=== PATIENT | male | born 1970 | race Caucasian/White ===

== ENCOUNTER 2019-01-09 07:31 | Emergency (ER) | payer MEDICARE, MEDICAID ==
[~2019-01-09] VITALS: Ht 182.9 cm; Wt 90.0 kg
[~2019-01-09 07:31] MED LIST: APIX5TAB3 PO; CHLO118M PO; MAGN500C16 PO; METH10TA4 PO; METH20CP PO; RISP1TAB13 PO; SERT50TA PO; TRAZ-251 PO; VITA-268 PO
[2019-01-09 08:09] LABS: CLARITY,URINE CLEAR (Clear); COLOR,URINE AMBER (Yellow); GLUCOSE, URINE NEGATIVE (Neg); KETONES,URINE TRACE mg/dl (Neg); LEUKOCYTE ESTERASE ,URINE NEGATIVE (Neg); NITRITES, URINE NEGATIVE (Neg); OCCULT BLOOD,URINE NEGATIVE (Neg); PH,URINE 5.5 (4.8-8.0); PROTEIN,URINE 100 mg/dl (Neg)
[2019-01-09 08:10] LABS: UA COLLECTION TYPE NON-SPECIFIED
[2019-01-09] MEDS ORDERED: ibuprofen tablet 400 MG TABLET PO ONE (08:10)
[2019-01-09 08:14] LABS: MUCUS STRANDS MANY /LPF (Neg); SQUAMOUS EPITHELIAL CELL,UR FEW /LPF (FEW)
[2019-01-09 08:15] LABS: RBC,URINE 0-2 /HPF (0-2)
[2019-01-09 08:16] LABS: BACTERIA,URINE 1+ /HPF (Neg)
[2019-01-09 08:18] LABS: FINE GRANULAR CAST 0-3 /LPF (NEGATIVE)
[2019-01-09 08:36] LABS: BASOPHILS % (AUTO) 0.4 % (0-1); EOSINOPHILS # (AUTO) 0.1 X10'3 (0-0.9); EOSINOPHILS % (AUTO) 1.4 % (0-6); HEMATOCRIT 41.6 % (42.0-52.0); LYMPHOCYTES # (AUTO) 1.2 X10'3 (1.1-4.8); LYMPHOCYTES % (AUTO) 19.4 % (21-51); MEAN CORPUSCULAR HEMOGLOBIN 29.3 PG (27.0-31.0); MEAN CORPUSCULAR HGB CONC 33.6 g/dL (33.0-36.5); MEAN CORPUSCULAR VOLUME 87.1 FL (78-98); MEAN PLATELET VOLUME 7.7 FL (7.4-10.4); MONOCYTES # (AUTO) 0.6 X10'3 (0-0.9); MONOCYTES % (AUTO) 8.8 % (2-12); NEUTROPHILS # (AUTO) 4.4 X10'3 (1.8-7.7); PLATELET COUNT 109 X10'3 (140-440); RED BLOOD COUNT 4.78 X10'6 (4.70-6.10); WHITE BLOOD COUNT 6.4 X10'3 (4.5-11.0)
[2019-01-09 08:50] LABS: D-DIMER 4.12 MG/L FEU (0-0.50)
[2019-01-09 08:52] LABS: ALANINE AMINOTRANSFERASE 29 U/L (12-78); ALBUMIN 3.9 G/DL (3.4-5.0); ALBUMIN/GLOBULIN RATIO 0.7 (1.1-1.5); ALKALINE PHOSPHATASE 56 IU/L (46-116); ANION GAP 6 (8-16); ASPARTATE AMINO TRANSFERASE 24 U/L (10-37); BILIRUBIN,TOTAL 0.6 MG/DL (0.1-1.0); BLOOD UREA NITROGEN 22 MG/DL (7-18); BUN/CREATININE RATIO 21.8 (5.4-32.0); CALCIUM 8.6 MG/DL (8.5-10.1); CHLORIDE 101 MMOL/L (99-107); CREATININE 1.01 MG/DL (0.60-1.10); POTASSIUM 3.9 MMOL/L (3.5-5.1); SODIUM 136 MMOL/L (135-145); TOTAL CARBON DIOXIDE 28.6 MMOL/L (24-32); TOTAL PROTEIN 9.7 G/DL (6.4-8.2); eGFR 79 ML/MIN
[2019-01-09 08:53] LABS: GLUCOSE 79 MG/DL (70-104)
[2019-01-09] MEDS ORDERED: iohexol 350MG/ML 100ml bottle IV ONE (09:38)
--- NOTE | 2019-01-09 09:54 | NUR ---
CT paged to take pt to CT as he now has PIV access.
[2019-01-09] MEDS ORDERED: enoxaparin 100mg/ml syringe SUBCUT ONE (10:45)
--- NOTE | 2019-01-09 11:21 | NUR ---
[facility] BLOOD BANK TECHNOLOGIST ALEXEY ZHOU PHONE NUMBER [phone]
[2019-01-09] MEDS ORDERED: APIX2.5T PO (12:50)
[2019-01-09 13:06] VITALS: BP 135/84
[2019-01-09] MEDS ORDERED: apixaban 5mg tablet PO ONE (20:00)
== END 2019-01-09 13:09 | disposition home or self-care (01) ==
LOC: ER 07:31
DX: I26.99 Other pulmonary embolism without acute cor pulmonale (principal); E78.00 Pure hypercholesterolemia, unspecified; Z86.718 Personal history of other venous thrombosis and embolism; Z88.0 Allergy status to penicillin; Z79.899 Other long term (current) drug therapy
CPT/HCPCS: 36415; 71046; 71260; 80053; 81001; 85025; 85379; 85610; 87088; 93005; 93306; 96372; 99284; Q9967; J1650

== ENCOUNTER 2019-10-21 08:33 | Emergency (ER) | payer MEDICARE, MEDICAID ==
[~2019-10-21] VITALS: Ht 182.9 cm; Wt 81.8 kg
[~2019-10-21 08:33] MED LIST changes: +APIX2.5T PO
--- NOTE | 2019-10-21 09:26 | NUR ---
Attempt to obtain urine sample at this time, patient unable to provide, will continue to monitor, coronary care unit nurse at bedside.
[2019-10-21 09:36] LABS: BASOPHILS # (AUTO) 0.1 X10'3 (0-0.2); BASOPHILS % (AUTO) 0.4 % (0-1); EOSINOPHILS % (AUTO) 0 % (0-6); HEMATOCRIT 36.6 % (42.0-52.0); HEMOGLOBIN 12.4 g/dl (14.0-17.9); LYMPHOCYTES # (AUTO) 1.1 X10'3 (1.1-4.8); MEAN CORPUSCULAR HEMOGLOBIN 29.2 PG (27.0-31.0); MEAN CORPUSCULAR HGB CONC 33.9 g/dL (33.0-36.5); MEAN CORPUSCULAR VOLUME 86.2 FL (78-98); MEAN PLATELET VOLUME 7.8 FL (7.4-10.4); MONOCYTES # (AUTO) 0.8 X10'3 (0-0.9); MONOCYTES % (AUTO) 5.2 % (2-12); NEUTROPHILS # (AUTO) 12.4 X10'3 (1.8-7.7); NEUTROPHILS % (AUTO) 86.4 % (42-75); PLATELET COUNT 153 X10'3 (140-440); RED BLOOD COUNT 4.24 X10'6 (4.70-6.10); RED CELL DISTRIBUTION WIDTH 14.6 % (11.5-14.5); WHITE BLOOD COUNT 14.4 X10'3 (4.5-11.0)
[2019-10-21 09:46] LABS: ALANINE AMINOTRANSFERASE 47 U/L (12-78); ALBUMIN 3.1 G/DL (3.4-5.0); ALBUMIN/GLOBULIN RATIO 0.5 (1.1-1.5); ALKALINE PHOSPHATASE 44 IU/L (46-116); ANION GAP 11 (8-16); ASPARTATE AMINO TRANSFERASE 41 U/L (10-37); BILIRUBIN,TOTAL 0.8 MG/DL (0.1-1.0); BLOOD UREA NITROGEN 29 MG/DL (7-18); BUN/CREATININE RATIO 18.5 (5.4-32.0); CALCIUM 8.4 MG/DL (8.5-10.1); CHLORIDE 92 MMOL/L (99-107); CREATININE 1.57 MG/DL (0.60-1.10); GLUCOSE 141 MG/DL (70-104); LIPASE 75 U/L (73-393); POTASSIUM 3.3 MMOL/L (3.5-5.1); SODIUM 128 MMOL/L (135-145); TOTAL CARBON DIOXIDE 24.7 MMOL/L (24-32); TOTAL PROTEIN 9.2 G/DL (6.4-8.2); eGFR 47 ML/MIN
[2019-10-21] MEDS ORDERED: normal saline 1000ml 1,000 ML IV ONE ×2 (10:30→11:30)
--- NOTE | 2019-10-21 11:22 | NUR ---
walked pt to the bathroom with urinal
[2019-10-21] MEDS ORDERED: normal saline 1000ml 1,000 ML IVB ONE (11:25)
[2019-10-21 11:42] LABS: CLARITY,URINE SLIGHTLY CLOUDY (Clear); COLOR,URINE YELLOW (Yellow); GLUCOSE, URINE NEGATIVE (Neg); KETONES,URINE NEGATIVE (Neg); LEUKOCYTE ESTERASE ,URINE SMALL (Neg); NITRITES, URINE POSITIVE (Neg); OCCULT BLOOD,URINE MODERATE (Neg); PROTEIN,URINE 100 mg/dl (Neg); UROBILINOGEN,URINE 0.2 E.U/dL (0.2-1.0)
[2019-10-21 11:45] LABS: UA COLLECTION TYPE URINAL
[2019-10-21 11:53] LABS: WBC,URINE 50-100 /HPF (0-4)
[2019-10-21 11:54] LABS: BACTERIA,URINE 4+ /HPF (Neg); MUCUS STRANDS MODERATE /LPF (Neg); SQUAMOUS EPITHELIAL CELL,UR FEW /LPF (FEW)
[2019-10-21 11:55] LABS: TRANSITIONAL EPI CELLS,URINE FEW /HPF
[2019-10-21] MEDS ORDERED: CefTRIAXone 2gm/D5W 50ml 50 ML IV ONE (12:20)
[2019-10-21] MEDS ORDERED: CEPH-572 PO (12:21)
--- NOTE | 2019-10-21 13:35 | NUR ---
CALL TO CAREGIVER ALEXEY ZHOU [phone] FOR TRANSPORT.
[2019-10-21 14:07] VITALS: BP 100/65
== END 2019-10-21 14:09 | disposition home or self-care (01) ==
LOC: ER 08:34
DX: N39.0 Urinary tract infection, site not specified (principal); R53.1 Weakness; R19.7 Diarrhea, unspecified; R10.84 Generalized abdominal pain; E78.00 Pure hypercholesterolemia, unspecified; F41.9 Anxiety disorder, unspecified; F32.9 Major depressive disorder, single episode, unspecified; Z86.711 Personal history of pulmonary embolism; Z86.718 Personal history of other venous thrombosis and embolism; Z88.0 Allergy status to penicillin; Z79.2 Long term (current) use of antibiotics; Z79.899 Other long term (current) drug therapy
CPT/HCPCS: 36415; 80053; 81001; 83605; 83690; 84145; 85025; 87088; 87186; 96361; 96365; 99285; J0696; J7030; 87077

== ENCOUNTER 2020-01-10 16:52 | Emergency (ER) | payer MEDICARE, MEDICAID ==
[~2020-01-10] VITALS: Ht 175.3 cm; Wt 80.0 kg
[2020-01-10 18:28] LABS: CLARITY,URINE CLEAR (Clear); GLUCOSE, URINE NEGATIVE (Neg); KETONES,URINE TRACE mg/dl (Neg); LEUKOCYTE ESTERASE ,URINE NEGATIVE (Neg); NITRITES, URINE NEGATIVE (Neg); OCCULT BLOOD,URINE NEGATIVE (Neg); PROTEIN,URINE TRACE mg/dl (Neg)
[2020-01-10 18:30] LABS: COLOR,URINE DARK YELLOW (Yellow); UA COLLECTION TYPE URINAL
[2020-01-10 18:35] LABS: BACTERIA,URINE NONE SEEN /HPF (Neg); MUCUS STRANDS MANY /LPF (Neg); RBC,URINE NONE SEEN /HPF (0-2); SQUAMOUS EPITHELIAL CELL,UR FEW /LPF (FEW); WBC,URINE 0-4 /HPF (0-4)
[2020-01-10 19:31] VITALS: BP 149/95
== END 2020-01-10 18:55 | disposition home or self-care (01) ==
LOC: ER 16:52
DX: F50.9 Eating disorder, unspecified (principal); E78.00 Pure hypercholesterolemia, unspecified; F41.9 Anxiety disorder, unspecified; Z87.448 Personal history of other diseases of urinary system; Z20.828 Contact with and (suspected) exposure to other viral communicable diseases; Z88.0 Allergy status to penicillin; Z79.899 Other long term (current) drug therapy
CPT/HCPCS: 36415; 81001; 87635; 99283

== ENCOUNTER 2022-06-13 12:53 | Emergency (ER) | payer MEDICARE, MEDICAID ==
[~2022-06-13] VITALS: Ht 182.9 cm; Wt 80.0 kg
[~2022-06-13 12:53] MED LIST changes: -APIX2.5T PO; -CHLO118M PO; +LAMO100T PO; -MAGN500C16 PO; -METH10TA4 PO; -METH20CP PO; +METH20TA42 PO; -RISP1TAB13 PO; +SERT-434 PO; -SERT50TA PO; -TRAZ-251 PO; +TRAZ-256 PO; -VITA-268 PO
[2022-06-13 12:57] VITALS: BP 109/78
== END 2022-06-13 13:47 | disposition home or self-care (01) ==
LOC: ER 12:53
DX: S01.512A Laceration without foreign body of oral cavity, initial encounter (principal); E78.00 Pure hypercholesterolemia, unspecified; Z88.0 Allergy status to penicillin; X58.XXXA Exposure to other specified factors, initial encounter; Y93.89 Activity, other specified; Y92.89 Other specified places as the place of occurrence of the external cause; Y99.8 Other external cause status
CPT/HCPCS: 99281

== ENCOUNTER 2022-08-07 10:57 | Inpatient (IN) | payer MEDICARE, MEDICAID ==
[~2022-08-07] VITALS: Ht 177.8 cm; Wt 70.6 kg
--- NOTE | 2022-08-07 11:51 | NUR ---
Pt refusing to answer medical questions r/t his PMHX. Pt is jumping from one subject to the next not LN is unable to follow story. Pts L elbow is weeping when asked what happened Pt looked at LN and replied "what the fuck do you think happened? I was bit by a bug!"
[2022-08-07] MEDS ORDERED: CefTRIAXone 2gm/D5W 50ml BAG 50 ML IV ONE (13:45)
[2022-08-07] MEDS ORDERED: bacitracin 15gm ointment TP ONE (13:50)
[2022-08-07] MEDS ORDERED: LIDOcaine 1% 30ml preserv. free vial IJ ONE ×2 (13:50→15:10)
[2022-08-07 14:14] LABS: BASOPHILS % (AUTO) 0.2 % (0-1); EOSINOPHILS % (AUTO) 0.3 % (0-6); HEMATOCRIT 34.8 % (42.0-52.0); HEMOGLOBIN 11.6 g/dl (14.0-17.9); LYMPHOCYTES # (AUTO) 0.9 X10'3 (1.1-4.8); LYMPHOCYTES % (AUTO) 10.4 % (21-51); MEAN CORPUSCULAR HEMOGLOBIN 28.4 PG (27.0-31.0); MEAN CORPUSCULAR HGB CONC 33.3 g/dL (33.0-36.5); MEAN CORPUSCULAR VOLUME 85.3 FL (78-98); MEAN PLATELET VOLUME 6.7 FL (7.4-10.4); MONOCYTES # (AUTO) 0.5 X10'3 (0-0.9); MONOCYTES % (AUTO) 5.9 % (2-12); NEUTROPHILS % (AUTO) 83.2 % (42-75); PLATELET COUNT 148 X10'3 (140-440); RED BLOOD COUNT 4.08 X10'6 (4.70-6.10); RED CELL DISTRIBUTION WIDTH 14.4 % (11.5-14.5); WHITE BLOOD COUNT 8.5 X10'3 (4.5-11.0)
[2022-08-07 14:28] LABS: ALANINE AMINOTRANSFERASE 14 U/L (12-78); ALBUMIN/GLOBULIN RATIO 0.7 (1.1-1.5); ALKALINE PHOSPHATASE 54 IU/L (46-116); ANION GAP 9 (8-16); ASPARTATE AMINO TRANSFERASE 19 U/L (10-37); BILIRUBIN,TOTAL 0.4 MG/DL (0.1-1.0); BLOOD UREA NITROGEN 20 MG/DL (7-18); BUN/CREATININE RATIO 26.7 (10.0-20.0); CALCIUM 8.4 MG/DL (8.5-10.1); CHLORIDE 98 MMOL/L (99-107); CREATININE 0.75 MG/DL (0.60-1.10); GLUCOSE 103 MG/DL (70-104); MAGNESIUM 1.9 MG/DL (1.5-2.4); POTASSIUM 4.2 MMOL/L (3.5-5.1); SODIUM 134 MMOL/L (135-145); TOTAL CARBON DIOXIDE 27.2 MMOL/L (24-32); TOTAL PROTEIN 7.3 G/DL (6.4-8.2); eGFR > 90 ML/MIN
[2022-08-07] MEDS ORDERED: mag hydrox/Alum hydrox/simeth 30ml oral suspension PO PRN (15:50)
[2022-08-07] MEDS ORDERED: potassium Cl 20 mEq SR tablet PO PRN ×2 (15:50)
[2022-08-07] MEDS ORDERED: magnesium hydroxide 30ml (MOM) UD suspension PO PRN (15:50)
[2022-08-07] MEDS ORDERED: HYDROmorphone/PF 0.2 MG/ML SYRINGE IV PRN (15:50)
[2022-08-07] MEDS ORDERED: magnesium 4gm in 100ml NS 100 ML IV PRN (15:50)
[2022-08-07] MEDS ORDERED: metoclopramide 5 mg/ml inj IV PRN (15:50)
[2022-08-07] MEDS ORDERED: acetaminophen 650mg rectal suppository RC PRN (15:50)
[2022-08-07] MEDS ORDERED: ondansetron/PF 4mg/2ml inj IV PRN (15:50)
[2022-08-07] MEDS ORDERED: ondansetron 4mg rapidly disintigrating tab PO PRN (15:50)
[2022-08-07] MEDS ORDERED: potassium Cl 40MEQ/1/2NS 520ml 520 ML IV PRN (15:50)
[2022-08-07] MEDS ORDERED: magnesium 2GM in 50ml NS 50 ML IV PRN (15:50)
[2022-08-07] MEDS ORDERED: acetaminophen 325mg tablet PO PRN ×2 (15:50)
[2022-08-07] MEDS ORDERED: magnesium Cl slow-release 64mg tablet PO PRN (15:50)
[2022-08-07] MEDS ORDERED: HYDROmorphone inj. 0.5 MG/0.5 ML DISP.SYRIN IV PRN (15:50)
[2022-08-07] MEDS ORDERED: HYDROcodone/acetaminophen 10/325mg tab PO PRN (15:50)
[2022-08-07] MEDS ORDERED: bisacodyl 10mg suppository rectal RC PRN (15:50)
[2022-08-07] MEDS ORDERED: HYDROcodone/acetaminophen 5mg/325mg tablet PO PRN (15:50)
[2022-08-07] MEDS: normal saline 1000ml 1,000 ML IV SCH (16:30)
--- NOTE | 2022-08-07 17:32 | NUR ---
Reported called to Ortho. Pt will be transfered once solar site assessment specialist is completed for admit.
[2022-08-07 18:00] VITALS: BP 124/73
[2022-08-07 18:18] LABS: APTT 29 SECONDS (22-32)
--- NOTE | 2022-08-07 18:40 | NUR ---
Patient in room ORTHO 4015. I have received report from Carlotta MONCADA and had the opportunity to ask questions and assume patient care.
--- NOTE | 2022-08-07 18:42 | NUR ---
Problems reprioritized. Patient report given, questions answered & plan of care reviewed with CORAL SERRA.
[2022-08-07] MEDS: K and/or MAG REPLACEMENT MC SCH (20:00)
[2022-08-07] MEDS: docusate sod 100mg capsule PO SCH (20:00)
[2022-08-07] MEDS ORDERED: temazepam 15mg capsule PO PRN (21:00)
[2022-08-07] MEDS ORDERED: traZODone 50mg tablet PO ONE (21:35)
[2022-08-07 22:00] VITALS: BP 118/52
[2022-08-07] MEDS ORDERED: BUSP15TA7 PO (22:43)
[2022-08-08] MEDS: normal saline 1000ml 1,000 ML IV SCH ×4 (01:50→22:51)
[2022-08-08 06:00] VITALS: BP 105/60
--- NOTE | 2022-08-08 06:40 | NUR ---
Problems reprioritized. Patient report given, questions answered & plan of care reviewed with Carlotta MONCADA.
[2022-08-08 06:43] LABS: BASOPHILS % (AUTO) 0.1 % (0-1); EOSINOPHILS % (AUTO) 0.4 % (0-6); HEMATOCRIT 33.5 % (42.0-52.0); HEMOGLOBIN 11.1 g/dl (14.0-17.9); LYMPHOCYTES % (AUTO) 11.5 % (21-51); MEAN CORPUSCULAR HGB CONC 33.2 g/dL (33.0-36.5); MEAN CORPUSCULAR VOLUME 84.3 FL (78-98); MEAN PLATELET VOLUME 6.8 FL (7.4-10.4); MONOCYTES # (AUTO) 0.6 X10'3 (0-0.9); MONOCYTES % (AUTO) 6.6 % (2-12); NEUTROPHILS # (AUTO) 7.4 X10'3 (1.8-7.7); NEUTROPHILS % (AUTO) 81.4 % (42-75); PLATELET COUNT 155 X10'3 (140-440); RED BLOOD COUNT 3.97 X10'6 (4.70-6.10); RED CELL DISTRIBUTION WIDTH 14.1 % (11.5-14.5); WHITE BLOOD COUNT 9.1 X10'3 (4.5-11.0)
--- NOTE | 2022-08-08 06:45 | NUR ---
Patient in room ORTHO 4015B. I have received report from CORAL SERRA and had the opportunity to ask questions and assume patient care.
[2022-08-08 07:06] LABS: ALANINE AMINOTRANSFERASE 18 U/L (12-78); ALBUMIN 2.7 G/DL (3.4-5.0); ALBUMIN/GLOBULIN RATIO 0.6 (1.1-1.5); ALKALINE PHOSPHATASE 51 IU/L (46-116); ANION GAP 6 (8-16); ASPARTATE AMINO TRANSFERASE 16 U/L (10-37); BILIRUBIN,TOTAL 0.3 MG/DL (0.1-1.0); BLOOD UREA NITROGEN 14 MG/DL (7-18); BUN/CREATININE RATIO 17.7 (10.0-20.0); CALCIUM 8.3 MG/DL (8.5-10.1); CHLORIDE 100 MMOL/L (99-107); CREATININE 0.79 MG/DL (0.60-1.10); GLUCOSE 105 MG/DL (70-104); MAGNESIUM 1.6 MG/DL (1.5-2.4); POTASSIUM 3.9 MMOL/L (3.5-5.1); SODIUM 133 MMOL/L (135-145); TOTAL CARBON DIOXIDE 27.3 MMOL/L (24-32); TOTAL PROTEIN 6.9 G/DL (6.4-8.2); eGFR > 90 ML/MIN
[2022-08-08] MEDS: docusate sod 100mg capsule PO SCH ×2 (08:00→20:47)
[2022-08-08] MEDS: enoxaparin 40mg/0.4ml syringe SUBCUT SCH (08:06)
[2022-08-08 10:00] VITALS: BP 103/53
[2022-08-08] MEDS: K and/or MAG REPLACEMENT MC SCH ×2 (12:14→20:00)
[2022-08-08] MEDS: VANCOmycin 1250MG/NS 250ml Bag 250 ML IV SCH ×2 (12:21→22:51)
[2022-08-08] MEDS ORDERED: iohexol 300mg/ml 100ml inj. ONE (12:49)
[2022-08-08] MEDS: CefTRIAXone/D5W-Rocephin 1gm 50 ML IV SCH (14:26)
[2022-08-08 18:00] VITALS: BP 126/69
--- NOTE | 2022-08-08 19:00 | NUR ---
Patient in room ORTHO 4006. I have received report from Carlotta MONCADA and had the opportunity to ask questions and assume patient care.
--- NOTE | 2022-08-08 19:20 | NUR ---
Problems reprioritized. Patient report given, questions answered & plan of care reviewed with CORAL SERRA.
[2022-08-08 22:00] VITALS: BP 108/61
[2022-08-09 06:00] VITALS: BP 120/74
--- NOTE | 2022-08-09 06:30 | NUR ---
Patient in room ORTHO 4006. I have received report from Aleah MONCADA and had the opportunity to ask questions and assume patient care.
--- NOTE | 2022-08-09 06:36 | NUR ---
Problems reprioritized. Patient report given, questions answered & plan of care reviewed with Kassi MERINO.
[2022-08-09 07:16] LABS: BASOPHILS % (AUTO) 0.2 % (0-1); EOSINOPHILS # (AUTO) 0.1 X10'3 (0-0.9); EOSINOPHILS % (AUTO) 0.9 % (0-6); HEMATOCRIT 35.6 % (42.0-52.0); HEMOGLOBIN 11.8 g/dl (14.0-17.9); LYMPHOCYTES % (AUTO) 14.2 % (21-51); MEAN CORPUSCULAR HEMOGLOBIN 28.3 PG (27.0-31.0); MEAN CORPUSCULAR HGB CONC 33.2 g/dL (33.0-36.5); MEAN CORPUSCULAR VOLUME 85.1 FL (78-98); MEAN PLATELET VOLUME 7.1 FL (7.4-10.4); MONOCYTES # (AUTO) 0.6 X10'3 (0-0.9); MONOCYTES % (AUTO) 8.6 % (2-12); NEUTROPHILS # (AUTO) 5.1 X10'3 (1.8-7.7); NEUTROPHILS % (AUTO) 76.1 % (42-75); PLATELET COUNT 161 X10'3 (140-440); RED BLOOD COUNT 4.18 X10'6 (4.70-6.10); RED CELL DISTRIBUTION WIDTH 14.1 % (11.5-14.5); WHITE BLOOD COUNT 6.8 X10'3 (4.5-11.0)
[2022-08-09 07:30] LABS: ALANINE AMINOTRANSFERASE 11 U/L (12-78); ALBUMIN 2.6 G/DL (3.4-5.0); ALBUMIN/GLOBULIN RATIO 0.6 (1.1-1.5); ALKALINE PHOSPHATASE 47 IU/L (46-116); ANION GAP 8 (8-16); ASPARTATE AMINO TRANSFERASE 16 U/L (10-37); BILIRUBIN,TOTAL 0.2 MG/DL (0.1-1.0); BLOOD UREA NITROGEN 11 MG/DL (7-18); BUN/CREATININE RATIO 16.2 (10.0-20.0); CALCIUM 8.3 MG/DL (8.5-10.1); CHLORIDE 99 MMOL/L (99-107); CREATININE 0.68 MG/DL (0.60-1.10); GLUCOSE 91 MG/DL (70-104); MAGNESIUM 1.6 MG/DL (1.5-2.4); SODIUM 132 MMOL/L (135-145); TOTAL CARBON DIOXIDE 24.8 MMOL/L (24-32); TOTAL PROTEIN 7.2 G/DL (6.4-8.2); eGFR > 90 ML/MIN
[2022-08-09 07:31] LABS: C-REACTIVE PROTEIN 8.53 MG/DL (0.0-0.5)
[2022-08-09] MEDS: K and/or MAG REPLACEMENT MC SCH (08:00)
[2022-08-09] MEDS: docusate sod 100mg capsule PO SCH (08:00)
[2022-08-09] MEDS: enoxaparin 40mg/0.4ml syringe SUBCUT SCH (08:06)
--- NOTE | 2022-08-09 08:15 | NUR ---
Patient refuses colace this morning
[2022-08-09] MEDS: CefTRIAXone/D5W-Rocephin 1gm 50 ML IV SCH (09:47)
[2022-08-09] MEDS ORDERED: sertraline 50mg tablet PO SCH (11:06)
[2022-08-09] MEDS: VANCOmycin 1250MG/NS 250ml Bag 250 ML IV SCH (11:06)
--- NOTE | 2022-08-09 11:49 | NUR ---
PRESSURE ULCER EDUCATION: DEFINITION: A pressure ulcer is an area of skin that breaks down when you stay in one position too long. The constant pressure against the skin reduces the blood flow to that area and the affected tissue dies. CAUSES: "Being bedridden or in a wheelchair "Fragile skin "Having a chronic condition, such as diabetes or vascular disease "Inability to move certain parts of your body without assistance "Older age "Incontinence of urine or stool SYMPTOMS: "A reddened area that DOES NOT turn white when pressed on - this can be the beginning of a pressure ulcer "A blister, deep sore or a crater - these can be advanced pressure ulcers FIRST AID: "Relieve the pressure on this area "Keep the area clean and dry "Call your primary doctor if you see any of the above symptoms "DO NOT massage the area "DO NOT use a donut shaped or ring shaped pillow- these actually interfere with the blood flow and cause complications PREVENTION: "Check for pressure ulcers everyday "Change position at least every two hours to relieve pressure "Use items that help relieve pressure- pillows, sheepskin, foam padding, and powders. "Keep skin clean and dry "Eat healthy well balanced meals "Exercise daily IF YOU SEE ANY OF THESE SYMPTOMS WHILE IN THE HOSPITAL - TELL YOUR NURSE IMMEDIATELY. IF YOU SEE ANY OF THESE SYMPTOMS WHILE AT HOME OR HAVE ANY QUESTIONS OR CONCERNS ABOUT PRESSURE ULCERS - CALL YOUR PRIMARY DOCTOR IMMEDIATELY. Addendum: 08/09/22 at 1149 by Jana Wagoner RN Amended: Links added.
[2022-08-09] MEDS ORDERED: SULF1TAB49 PO (11:53)
--- NOTE | 2022-08-09 14:00 | NUR ---
Patient discharged today and all discharge papers were reviewed. All questions were answered. IV removed by RN. all patient belongings were gathered and patient dressed himself. Patient was wheeled downstairs and into the private vehicle of his caregiver
--- NOTE | 2022-08-09 14:00 | NUR ---
I have reviewed and agree with interventions, assessments, and documentation by Kassi Wild LVN.
[2022-08-09] MEDS ORDERED: busPIRone 15mg tablet PO SCH (20:00)
[2022-08-09] MEDS ORDERED: apixaban 5mg tablet PO SCH (20:00)
[2022-08-09] MEDS ORDERED: traZODone 50mg tablet PO SCH (21:00)
[2022-08-09] MEDS ORDERED: VANCOMYCIN LEVEL IV ONE (22:30)
[2022-08-10] MEDS ORDERED: lamoTRIgine 100mg tablet PO SCH (08:00)
== END 2022-08-09 14:14 | disposition home health service (06) | DRG 558 ==
LOC: ER 10:57 → ED HOLD 15:53 → ORTHO 4S 17:54
PROVIDERS: ADMIT Family Medicine; ATTEND Family Medicine
PROC: 0H9EXZZ Drainage of Left Lower Arm Skin, External Approach (ICD-10-PCS; principal; 2022-08-07)
PROC: BP2U1ZZ Computerized Tomography (CT Scan) of Left Upper Extremity using Low Osmolar Contrast (ICD-10-PCS; 2022-08-07)
DX: M70.22 Olecranon bursitis, left elbow (principal); I27.82 Chronic pulmonary embolism; L03.116 Cellulitis of left lower limb; K21.9 Gastro-esophageal reflux disease without esophagitis; I48.91 Unspecified atrial fibrillation; F32.A Depression, unspecified; W57.XXXA Bitten or stung by nonvenomous insect and other nonvenomous arthropods, initial encounter; Z60.2 Problems related to living alone; F41.9 Anxiety disorder, unspecified; I25.10 Atherosclerotic heart disease of native coronary artery without angina pectoris; E78.00 Pure hypercholesterolemia, unspecified; Z79.01 Long term (current) use of anticoagulants; Z82.49 Family history of ischemic heart disease and other diseases of the circulatory system; Z88.0 Allergy status to penicillin; Z86.718 Personal history of other venous thrombosis and embolism; Z79.899 Other long term (current) drug therapy; Z79.82 Long term (current) use of aspirin; Y92.89 Other specified places as the place of occurrence of the external cause
CPT/HCPCS: 36415; 71045; 73201; 80053; 83605; 83735; 84145; 85025; 85610; 85730; 86140; 87040; 87070; 87081; 99285; A6223; A6266; A6446; A6449; G0378; J0696; J1650; J3370; J3490; J7030; Q9967

== ENCOUNTER 2022-10-30 14:37 | Emergency (ER) | payer MEDICARE, MEDICAID ==
[~2022-10-30] VITALS: Ht 175.3 cm; Wt 73.6 kg
[~2022-10-30 14:37] MED LIST changes: +BUSP15TA7 PO; -METH20TA42 PO
[2022-10-30] MEDS ORDERED: CEPH-585 PO (18:13)
[2022-10-30] MEDS ORDERED: SULF1TAB49 PO (18:13)
[2022-10-30 18:31] VITALS: BP 117/80; PULSE 74; RESP 16; TEMP 98.2; O2SAT 98
== END 2022-10-30 18:34 | disposition home or self-care (01) ==
LOC: ER 14:38
DX: L03.116 Cellulitis of left lower limb (principal); E78.00 Pure hypercholesterolemia, unspecified; F31.9 Bipolar disorder, unspecified; Z88.0 Allergy status to penicillin; Z79.899 Other long term (current) drug therapy
CPT/HCPCS: 99283

== ENCOUNTER 2022-11-17 09:54 | Emergency (ER) | payer MEDICARE, MEDICAID ==
[~2022-11-17] VITALS: Ht 182.9 cm; Wt 63.0 kg
[~2022-11-17 09:54] MED LIST changes: +CEPH-585 PO
[2022-11-17 10:42] VITALS: BP 98/59; PULSE 81; RESP 20; TEMP 98.4; O2SAT 100
[2022-11-17] MEDS ORDERED: ACET10DR2 EACH EAR (12:22)
== END 2022-11-17 12:40 | disposition home or self-care (01) ==
LOC: ER 09:55
DX: H92.01 Otalgia, right ear (principal); E78.00 Pure hypercholesterolemia, unspecified; Z88.0 Allergy status to penicillin; Z79.899 Other long term (current) drug therapy
CPT/HCPCS: 99283

== ENCOUNTER 2023-01-01 11:36 | Inpatient (IN) | payer MEDICARE, MEDICAID ==
[~2023-01-01] VITALS: Ht 188 cm; Wt 73.3 kg
[~2023-01-01 11:36] MED LIST changes: +ACET10DR2 EACH EAR
[2023-01-01 12:01] LABS: BASOPHILS % (AUTO) 0.5 % (0-1); EOSINOPHILS % (AUTO) 0.3 % (0-6); HEMATOCRIT 40.6 % (42.0-52.0); HEMOGLOBIN 13.5 g/dl (14.0-17.9); LYMPHOCYTES # (AUTO) 1.2 X10'3 (1.1-4.8); LYMPHOCYTES % (AUTO) 25.9 % (21-51); MEAN CORPUSCULAR HEMOGLOBIN 28.9 PG (27.0-31.0); MEAN CORPUSCULAR HGB CONC 33.2 g/dL (33.0-36.5); MEAN CORPUSCULAR VOLUME 87.1 FL (78-98); MEAN PLATELET VOLUME 6.8 FL (7.4-10.4); MONOCYTES # (AUTO) 0.5 X10'3 (0-0.9); NEUTROPHILS # (AUTO) 2.8 X10'3 (1.8-7.7); NEUTROPHILS % (AUTO) 62.3 % (42-75); PLATELET COUNT 145 X10'3 (140-440); RED BLOOD COUNT 4.66 X10'6 (4.70-6.10); RED CELL DISTRIBUTION WIDTH 15.2 % (11.5-14.5); WHITE BLOOD COUNT 4.5 X10'3 (4.5-11.0)
[2023-01-01 12:15] LABS: ALANINE AMINOTRANSFERASE 37 U/L (12-78); ALBUMIN 3.7 G/DL (3.4-5.0); ALBUMIN/GLOBULIN RATIO 0.8 (1.1-1.5); ALKALINE PHOSPHATASE 75 IU/L (46-116); ANION GAP 5 (8-16); ASPARTATE AMINO TRANSFERASE 29 U/L (10-37); BILIRUBIN,TOTAL 0.3 MG/DL (0.1-1.0); BLOOD UREA NITROGEN 21 MG/DL (7-18); BUN/CREATININE RATIO 24.7 (10.0-20.0); CALCIUM 8.8 MG/DL (8.5-10.1); CHLORIDE 98 MMOL/L (99-107); CREATININE 0.85 MG/DL (0.60-1.10); GLUCOSE 111 MG/DL (70-104); POTASSIUM 3.8 MMOL/L (3.5-5.1); SODIUM 134 MMOL/L (135-145); TOTAL CARBON DIOXIDE 31.1 MMOL/L (24-32); TOTAL PROTEIN 8.6 G/DL (6.4-8.2); eCRCL 105 ML/MIN; eGFR > 90 ML/MIN
[2023-01-01 12:23] LABS: PRO BRAIN NATRIURETIC PEPTIDE 112 PG/ML (0-125)
[2023-01-01] MEDS ORDERED: normal saline 1000ML IV soln IVB ONE (13:20)
[2023-01-01 13:48] LABS: D-DIMER < 0.19 MG/L FEU (0-0.50)
[2023-01-01] MEDS ORDERED: ondansetron/PF 4mg/2ml inj IV PRN (16:40)
[2023-01-01] MEDS ORDERED: mag hydrox/Alum hydrox/simeth 30ml oral suspension PO PRN (16:40)
[2023-01-01] MEDS ORDERED: HYDROcodone/acetaminophen 10/325mg tab PO PRN (16:40)
[2023-01-01] MEDS ORDERED: HYDROcodone/acetaminophen 5mg/325mg tablet PO PRN (16:40)
[2023-01-01] MEDS ORDERED: acetaminophen 325mg tablet PO PRN ×2 (16:40)
[2023-01-01] MEDS ORDERED: magnesium hydroxide 30ml (MOM) UD suspension PO PRN (16:40)
[2023-01-01] MEDS ORDERED: morphine 2 MG/ML inj. syringe IV PRN ×2 (16:40)
[2023-01-01] MEDS: normal saline 1000ml 1,000 ML IV SCH ×2 (17:10→18:08)
[2023-01-01] MEDS ORDERED: APIX2.5T PO (18:15)
[2023-01-01] MEDS ORDERED: TIZA-189 PO (18:15)
[2023-01-01] MEDS ORDERED: tizanidine 4mg tablet PO PRN (18:30)
[2023-01-01] MEDS: apixaban 2.5mg tablet PO SCH (20:44)
[2023-01-01] MEDS: busPIRone 15mg tablet PO SCH (20:45)
[2023-01-01] MEDS: docusate sod 100mg capsule PO SCH (20:45)
[2023-01-01] MEDS: traZODone 50mg tablet PO SCH (20:47)
[2023-01-01 20:50] LABS: BILIRUBIN,URINE NEGATIVE (Neg); CLARITY,URINE CLEAR (Clear); COLOR,URINE YELLOW (Yellow); GLUCOSE, URINE NEGATIVE (Neg); KETONES,URINE NEGATIVE (Neg); LEUKOCYTE ESTERASE ,URINE NEGATIVE (Neg); NITRITES, URINE NEGATIVE (Neg); OCCULT BLOOD,URINE NEGATIVE (Neg); PH,URINE 6.5 (4.8-8.0); PROTEIN,URINE NEGATIVE (Neg); UROBILINOGEN,URINE 0.2 E.U/dL (0.2-1.0)
[2023-01-01 21:02] LABS: UA COLLECTION TYPE VOIDED
[2023-01-02] MEDS: normal saline 1000ml 1,000 ML IV SCH ×2 (02:30→18:07)
[2023-01-02] MEDS: docusate sod 100mg capsule PO SCH ×2 (08:00→21:10)
[2023-01-02] MEDS: apixaban 2.5mg tablet PO SCH ×2 (09:36→20:00)
[2023-01-02] MEDS: sertraline 50mg tablet PO SCH (09:37)
[2023-01-02] MEDS: busPIRone 15mg tablet PO SCH ×2 (09:38→21:13)
[2023-01-02] MEDS: lamoTRIgine 100mg tablet PO SCH (09:38)
[2023-01-02] MEDS ORDERED: normal saline 1000ml 1,000 ML IV ONE (09:45)
[2023-01-02 11:20] LABS: ANION GAP 11 (8-16); BLOOD UREA NITROGEN 19 MG/DL (7-18); BUN/CREATININE RATIO 23.8 (10.0-20.0); CALCIUM 8.6 MG/DL (8.5-10.1); CHLORIDE 101 MMOL/L (99-107); GLUCOSE 110 MG/DL (70-104); POTASSIUM 4.4 MMOL/L (3.5-5.1); SODIUM 132 MMOL/L (135-145); TOTAL CARBON DIOXIDE 20.5 MMOL/L (24-32); eCRCL 112 ML/MIN; eGFR > 90 ML/MIN
[2023-01-02 11:52] LABS: BASOPHILS % (AUTO) 0.4 % (0-1); EOSINOPHILS % (AUTO) 0.5 % (0-6); HEMATOCRIT 34.5 % (42.0-52.0); HEMOGLOBIN 11.5 g/dl (14.0-17.9); LYMPHOCYTES % (AUTO) 27.1 % (21-51); MEAN CORPUSCULAR HEMOGLOBIN 28.7 PG (27.0-31.0); MEAN CORPUSCULAR HGB CONC 33.2 g/dL (33.0-36.5); MEAN CORPUSCULAR VOLUME 86.3 FL (78-98); MONOCYTES # (AUTO) 0.4 X10'3 (0-0.9); NEUTROPHILS # (AUTO) 2.2 X10'3 (1.8-7.7); PLATELET COUNT 112 X10'3 (140-440); RED BLOOD COUNT 3.99 X10'6 (4.70-6.10); RED CELL DISTRIBUTION WIDTH 15.5 % (11.5-14.5); WHITE BLOOD COUNT 3.6 X10'3 (4.5-11.0)
[2023-01-02] MEDS: traZODone 50mg tablet PO SCH (21:13)
[2023-01-03] VITALS (11 sets, daily range): BP systolic 96–120; BP diastolic 57–70; PULSE 68–82; RESP 16–20; TEMP 97.4–98.5; O2SAT 96–98
[2023-01-03] MEDS: normal saline 1000ml 1,000 ML IV SCH ×2 (02:54→22:18)
[2023-01-03 06:14] LABS: HEMATOCRIT 34.7 % (42.0-52.0); HEMOGLOBIN 11.6 g/dl (14.0-17.9); PLATELET COUNT 109 X10'3 (140-440)
[2023-01-03 06:17] LABS: BASOPHILS % (AUTO) 0.4 % (0-1); EOSINOPHILS % (AUTO) 1.3 % (0-6); LYMPHOCYTES # (AUTO) 1.1 X10'3 (1.1-4.8); LYMPHOCYTES % (AUTO) 27.4 % (21-51); MEAN CORPUSCULAR HGB CONC 33.5 g/dL (33.0-36.5); MEAN CORPUSCULAR VOLUME 86.4 FL (78-98); MONOCYTES # (AUTO) 0.4 X10'3 (0-0.9); MONOCYTES % (AUTO) 11.5 % (2-12); NEUTROPHILS # (AUTO) 2.3 X10'3 (1.8-7.7); NEUTROPHILS % (AUTO) 59.4 % (42-75); RED BLOOD COUNT 4.02 X10'6 (4.70-6.10); RED CELL DISTRIBUTION WIDTH 15.3 % (11.5-14.5); WHITE BLOOD COUNT 3.9 X10'3 (4.5-11.0)
[2023-01-03 06:23] LABS: ANION GAP 6 (8-16); BLOOD UREA NITROGEN 17 MG/DL (7-18); BUN/CREATININE RATIO 21.3 (10.0-20.0); CALCIUM 8.3 MG/DL (8.5-10.1); CHLORIDE 103 MMOL/L (99-107); GLUCOSE 96 MG/DL (70-104); POTASSIUM 3.9 MMOL/L (3.5-5.1); SODIUM 136 MMOL/L (135-145); TOTAL CARBON DIOXIDE 26.8 MMOL/L (24-32); eCRCL 112 ML/MIN; eGFR > 90 ML/MIN
[2023-01-03] MEDS: lamoTRIgine 100mg tablet PO SCH (07:54)
[2023-01-03] MEDS: busPIRone 15mg tablet PO SCH ×2 (07:54→22:12)
[2023-01-03] MEDS: sertraline 50mg tablet PO SCH (07:54)
[2023-01-03] MEDS: docusate sod 100mg capsule PO SCH ×2 (07:54→22:09)
[2023-01-03] MEDS: apixaban 2.5mg tablet PO SCH ×2 (07:54→22:12)
[2023-01-03] MEDS: traZODone 50mg tablet PO SCH (22:12)
[2023-01-04] MEDS: normal saline 1000ml 1,000 ML IV SCH (04:40)
[2023-01-04 06:27] LABS: BASOPHILS % (AUTO) 0.5 % (0-1); EOSINOPHILS # (AUTO) 0.1 X10'3 (0-0.9); EOSINOPHILS % (AUTO) 1.2 % (0-6); HEMATOCRIT 36.1 % (42.0-52.0); HEMOGLOBIN 12.1 g/dl (14.0-17.9); LYMPHOCYTES # (AUTO) 1.2 X10'3 (1.1-4.8); LYMPHOCYTES % (AUTO) 26.6 % (21-51); MEAN CORPUSCULAR HEMOGLOBIN 29.2 PG (27.0-31.0); MEAN CORPUSCULAR HGB CONC 33.6 g/dL (33.0-36.5); MONOCYTES # (AUTO) 0.5 X10'3 (0-0.9); NEUTROPHILS # (AUTO) 2.6 X10'3 (1.8-7.7); NEUTROPHILS % (AUTO) 59.7 % (42-75); PLATELET COUNT 110 X10'3 (140-440); RED BLOOD COUNT 4.15 X10'6 (4.70-6.10); RED CELL DISTRIBUTION WIDTH 15.5 % (11.5-14.5); WHITE BLOOD COUNT 4.4 X10'3 (4.5-11.0)
[2023-01-04 06:34] LABS: ALBUMIN 3.1 G/DL (3.4-5.0); ANION GAP 1 (8-16); BLOOD UREA NITROGEN 22 MG/DL (7-18); BUN/CREATININE RATIO 23.9 (10.0-20.0); CALCIUM 8.4 MG/DL (8.5-10.1); CHLORIDE 104 MMOL/L (99-107); CREATININE 0.92 MG/DL (0.60-1.10); GLUCOSE 94 MG/DL (70-104); POTASSIUM 4.3 MMOL/L (3.5-5.1); SODIUM 137 MMOL/L (135-145); eCRCL 97 ML/MIN; eGFR 86 ML/MIN
[2023-01-04 06:57] VITALS: BP 110/75; PULSE 65; RESP 18; TEMP 98.6; O2SAT 97
[2023-01-04 08:00] VITALS: RESP 18; O2SAT 97
[2023-01-04] MEDS: docusate sod 100mg capsule PO SCH (08:00)
[2023-01-04] MEDS: sertraline 50mg tablet PO SCH (08:58)
[2023-01-04] MEDS: busPIRone 15mg tablet PO SCH (08:58)
[2023-01-04] MEDS: apixaban 2.5mg tablet PO SCH (08:58)
[2023-01-04] MEDS: lamoTRIgine 100mg tablet PO SCH (08:58)
== END 2023-01-04 09:21 | disposition home or self-care (01) | DRG 683 ==
LOC: ER 11:37 → ED HOLD 16:42 → ORTHO 4S 01-02 23:45
PROVIDERS: ADMIT Internal Medicine; ATTEND Internal Medicine
DX: N17.9 Acute kidney failure, unspecified (principal); D61.818 Other pancytopenia; E87.1 Hypo-osmolality and hyponatremia; E86.0 Dehydration; I95.1 Orthostatic hypotension; G47.00 Insomnia, unspecified; F41.9 Anxiety disorder, unspecified; E78.00 Pure hypercholesterolemia, unspecified; F32.A Depression, unspecified; Z79.01 Long term (current) use of anticoagulants; Z79.899 Other long term (current) drug therapy; Z86.711 Personal history of pulmonary embolism
CPT/HCPCS: 36415; 70450; 71045; 80048; 80053; 81003; 83880; 84484; 85025; 85379; 87081; 93306; 99285; G0378; J7030

== ENCOUNTER 2023-02-05 10:43 | Emergency (ER) | payer MEDICARE, MEDICAID ==
[~2023-02-05] VITALS: Ht 175.3 cm; Wt 74.5 kg
[~2023-02-05 10:43] MED LIST changes: -ACET10DR2 EACH EAR; +APIX2.5T PO; -APIX5TAB3 PO; -CEPH-585 PO; +TIZA-189 PO
[2023-02-05 10:46] VITALS: BP 162/74; PULSE 73; RESP 18; TEMP 97; O2SAT 98
[2023-02-05] MEDS ORDERED: MOXI3DRO25 LEFTEYE (10:50)
[2023-02-05] MEDS ORDERED: DOXY-1 PO (10:50)
== END 2023-02-05 11:08 | disposition home or self-care (01) ==
LOC: ER 10:43
DX: H10.89 Other conjunctivitis (principal); E78.00 Pure hypercholesterolemia, unspecified; F31.9 Bipolar disorder, unspecified; Z88.0 Allergy status to penicillin; Z79.899 Other long term (current) drug therapy
CPT/HCPCS: 99283

== ENCOUNTER 2023-12-09 15:28 | Emergency (ER) | payer MEDICARE, MEDICAID ==
[~2023-12-09] VITALS: Ht 188 cm; Wt 78.8 kg
[2023-12-09 15:44] VITALS: BP 111/65; PULSE 89; TEMP 99.4; O2SAT 97
[2023-12-09] MEDS: LIDOcaine 1% W/epiNEPHrine 1:100,000 20ml vial IJ ONE (16:05)
[2023-12-09] MEDS ORDERED: DOXY100C43 PO (18:27)
[2023-12-09] MEDS: DOXYCYCLINE 100MG CAPSULE PO STA (18:30)
[2023-12-09] MEDS: TETanus/Pertussis (Acell)/Diphther VAC/PF (Tdap-Adult) 0.5ml syringe IMVAC ONE (18:31)
[2023-12-09 18:49] VITALS: RESP 20
== END 2023-12-09 18:52 | disposition home or self-care (01) ==
LOC: ER 15:28
DX: L02.413 Cutaneous abscess of right upper limb (principal); L02.415 Cutaneous abscess of right lower limb; E78.00 Pure hypercholesterolemia, unspecified; F41.9 Anxiety disorder, unspecified; F32.A Depression, unspecified; Z88.0 Allergy status to penicillin; Z79.899 Other long term (current) drug therapy; Z86.711 Personal history of pulmonary embolism; Z86.718 Personal history of other venous thrombosis and embolism
CPT/HCPCS: 90715; 99283; G0008; 90471; A6266; A6449

== ENCOUNTER 2024-01-02 16:44 | Emergency (ER) | payer MEDICARE, MEDICAID ==
[~2024-01-02] VITALS: Ht 182.9 cm; Wt 79.3 kg
[2024-01-02 16:56] VITALS: BP 115/67; PULSE 85; RESP 16; O2SAT 99
[2024-01-02] MEDS ORDERED: CefTRIAXone 2gm/D5W 50ml BAG 50 ML IV ONE (18:35)
[2024-01-02 19:18] LABS: BASOPHILS % (AUTO) 0.2 % (0-1); EOSINOPHILS % (AUTO) 0.1 % (0-6); HEMATOCRIT 34.7 % (42.0-52.0); HEMOGLOBIN 11.5 g/dl (14.0-17.9); LYMPHOCYTES # (AUTO) 0.7 X10'3 (1.1-4.8); LYMPHOCYTES % (AUTO) 6.2 % (21-51); MEAN CORPUSCULAR HEMOGLOBIN 27.9 PG (27.0-31.0); MEAN CORPUSCULAR HGB CONC 33.2 g/dL (33.0-36.5); MEAN CORPUSCULAR VOLUME 83.9 FL (78-98); MEAN PLATELET VOLUME 6.9 FL (7.4-10.4); MONOCYTES # (AUTO) 0.8 X10'3 (0-0.9); MONOCYTES % (AUTO) 6.9 % (2-12); NEUTROPHILS # (AUTO) 9.8 X10'3 (1.8-7.7); NEUTROPHILS % (AUTO) 86.6 % (42-75); PLATELET COUNT 142 X10'3 (140-440); RED BLOOD COUNT 4.13 X10'6 (4.70-6.10); RED CELL DISTRIBUTION WIDTH 14.3 % (11.5-14.5); WHITE BLOOD COUNT 11.4 X10'3 (4.5-11.0)
[2024-01-02] MEDS ORDERED: VANCOMYCIN 1GM 200ML H20 (PEG) 250 ML IV ONE (19:20)
[2024-01-02] MEDS ORDERED: SULF1TAB49 PO (19:37)
[2024-01-02] MEDS ORDERED: CEPH-585 PO (19:37)
[2024-01-02] MEDS: sulfamethoxazole/trimethoprim DS (800/160mg) tablet PO ONE (19:39)
[2024-01-02] MEDS: CefTRIAXone 1000mg IM Kit (w/lidocaine diluent) IM ONE (19:39)
[2024-01-02 19:44] LABS: ALBUMIN 3.3 G/DL (3.4-5.0); ANION GAP 6 (8-16); BLOOD UREA NITROGEN 20 MG/DL (7-18); CALCIUM 7.8 MG/DL (8.5-10.1); CHLORIDE 96 MMOL/L (99-107); CREATININE 0.91 MG/DL (0.60-1.10); GLUCOSE 120 MG/DL (70-104); MAGNESIUM 1.9 MG/DL (1.5-2.4); POTASSIUM 3.6 MMOL/L (3.5-5.1); SODIUM 129 MMOL/L (135-145); TOTAL CARBON DIOXIDE 27.4 MMOL/L (24-32); eCRCL 103 ML/MIN; eGFR 87 ML/MIN
[2024-01-03] MEDS ORDERED: NALT50TA5 PO (20:47)
[2024-01-03] MEDS ORDERED: LAMO150T6 PO (20:47)
[2024-01-04] MEDS ORDERED: DOXY-224 PO (17:06)
[2024-01-04] MEDS ORDERED: HYDR-3965 PO (17:08)
== END 2024-01-02 20:13 | disposition left against medical advice (07) ==
LOC: ER 16:44
DX: M65.142 Other infective (teno)synovitis, left hand (principal); E78.00 Pure hypercholesterolemia, unspecified; Z88.0 Allergy status to penicillin; Z79.899 Other long term (current) drug therapy; Z79.2 Long term (current) use of antibiotics; Z86.711 Personal history of pulmonary embolism; Z86.718 Personal history of other venous thrombosis and embolism
CPT/HCPCS: 36415; 80048; 83605; 83735; 84145; 85025; 87040; 96372; 99283; J0696

== ENCOUNTER 2024-03-19 16:15 | Emergency (ER) | payer MEDICARE, MEDICAID ==
[~2024-03-19 16:15] MED LIST changes: +DOXY-224 PO; +HYDR-3965 PO; +LAMO150T6 PO; +NALT50TA5 PO; -TIZA-189 PO
== END 2024-03-19 19:39 | disposition home or self-care (01) ==
LOC: ER 16:15
DX: L02.419 Cutaneous abscess of limb, unspecified (principal); Z53.21 Procedure and treatment not carried out due to patient leaving prior to being seen by health care provider; Z88.0 Allergy status to penicillin

== ENCOUNTER 2024-10-03 13:32 | Emergency (ER) | payer MEDICARE, MEDICAID ==
[~2024-10-03] VITALS: Ht 172.7 cm; Wt 74.6 kg
[2024-10-03 13:33] VITALS: PULSE 92; RESP 16; TEMP 98; O2SAT 98
--- NOTE | 2024-10-03 14:06 | Physician Documentation ---
History of Present Illness ~ General Chief Complaint: See Chief Complaint Stated Complaint: MH Time Seen by MD: 13:52 Primary Medical Doctor: None History of Present Illness Initial Comments 54-YEAR-OLD MALE WITH A KNOWN PSYCH HISTORY PRESENTS TO THE ED REQUESTING MEDICATION REFILL. HE STATES HE DID NOT RECEIVE HIS MORNING MEDICATIONS. DENIES ANY HI OR SI. MULTIPLE COMPLAINTS ABOUT BEING HOMELESS. Medication Reconciliation Allergies: Coded Allergies: Penicillins (Unverified Allergy, Unknown, 01/03/24) Scheduled Apixaban (Eliquis), 1 TAB PO Q12H, (Reported) Buspirone HCl (Buspirone HCl), 1 TAB PO BID, (Reported) Doxycycline Hyclate (Doxycycline Hyclate), 1 CAP PO Q12H Lamotrigine (LaMICtal tablet), 1 TAB PO DAILY, (Reported) Lamotrigine (Lamotrigine), 1 TAB PO DAILY, (Reported) Naltrexone Hcl (Naltrexone Hcl), 1 TAB PO DAILY, (Reported) Sertraline HCl (Sertraline HCl), 1.5 TAB PO DAILY, (Reported) Trazodone HCl (Trazodone HCl), 2 TAB PO HS, (Reported) Scheduled PRN Hydrocodone Bit/Acetaminophen 5/325 MG ([place] 5/325 MG), 1 TAB PO Q8H PRN for severe pain (7-10) Past Medical History 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 Physical Exam Physical Exam Vital Signs: Temperature: 98.0, Source: Temporal, Heart Rate: 92, Respiratory Rate: 16, Pulse Oximetry: 98, Weight: 74.600 Oxygen Flow Rate: 0 Physical Exam General: Alert, no apparent distress. Respiratory: Lungs clear, no respiratory distress. Neurologic: Oriented x4. Psychiatric: Normal mood and affect. Skin: Normal color, warm and dry. No edema, no ecchymosis. Progress Results/Orders Results/Orders Completed Orders - KIRK SPEARS NP Lamotrigine Tablet (Lamictal Tablet) (10/03/24 14:00) Buspirone Tablet (Buspar Tablet) (10/03/24 14:00) Vital Signs 10/03/24 13:33 Temp 98.0 Pulse 92 Resp 16 Pulse Ox 98 O2 Flow Rate 0 Medical Decision Making Findings MED REFILLED REQUESTED Departure Disposition: HOME / SELF CARE / HOMELESS Impression: Primary Impression: Developmental delay Additional Impression: Psychoses Condition: Stable Referrals: NO PRIMARY CARE PROVIDER (PCP) Signature Scribe Signature: Scribed for Kirk Spears [employer] by Kirk Cerrato NP . 10/03/24 14:12 Attestation: Scribed for Kirk Spears [employer] by Kirk Cerrato NP . 10/03/24 14:12 KIRK SPEARS NP Oct 03, 2024 14:06
== END 2024-10-03 14:11 | disposition home or self-care (01) ==
LOC: ER 13:33
DX: R62.50 Unspecified lack of expected normal physiological development in childhood (principal); F29 Unspecified psychosis not due to a substance or known physiological condition; Z76.0 Encounter for issue of repeat prescription; I25.10 Atherosclerotic heart disease of native coronary artery without angina pectoris; E78.00 Pure hypercholesterolemia, unspecified; F41.9 Anxiety disorder, unspecified; F32.A Depression, unspecified; Z86.711 Personal history of pulmonary embolism; Z86.718 Personal history of other venous thrombosis and embolism; Z59.00 Homelessness unspecified; Z88.0 Allergy status to penicillin; Z79.899 Other long term (current) drug therapy; Z60.2 Problems related to living alone
CPT/HCPCS: 99281; 99283

== ENCOUNTER 2024-10-08 08:59 | Emergency (ER) | payer MEDICARE, MEDICAID ==
[~2024-10-08] VITALS: Ht 177.8 cm; Wt 72.5 kg
[2024-10-08 09:07] VITALS: BP 105/61; RESP 16; O2SAT 98
--- NOTE | 2024-10-08 09:18 | Physician Documentation ---
History of Present Illness ~ Chief Complaint: Medical Clearance Stated Complaint: MED CLEARANCE Time Seen by MD: 09:19 Primary Medical Doctor: None HPI Patient is a 54-year-old male that presents to the emergency department for evaluation for medical clearance of the [facility] presents to the crisis Center for detox. Patient is accompanied by his campground caretaker. Tetanus within 5 years?: Yes Medication Reconciliation Allergies: Coded Allergies: Penicillins (Unverified Allergy, Unknown, 10/08/24) Scheduled Apixaban (Eliquis), 1 TAB PO Q12H, (Reported) Buspirone HCl (Buspirone HCl), 1 TAB PO BID, (Reported) Doxycycline Hyclate (Doxycycline Hyclate), 1 CAP PO Q12H Lamotrigine (LaMICtal tablet), 1 TAB PO DAILY, (Reported) Lamotrigine (Lamotrigine), 1 TAB PO DAILY, (Reported) Naltrexone Hcl (Naltrexone Hcl), 1 TAB PO DAILY, (Reported) Sertraline HCl (Sertraline HCl), 1.5 TAB PO DAILY, (Reported) Trazodone HCl (Trazodone HCl), 2 TAB PO HS, (Reported) Scheduled PRN Hydrocodone Bit/Acetaminophen 5/325 MG ([place] 5/325 MG), 1 TAB PO Q8H PRN for severe pain (7-10) Past Medical History 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 Physical Exam Vital Signs: Temperature: 97.6, Heart Rate: 81, Respiratory Rate: 16, Pulse Oximetry: 98, Weight: 72.500 Oxygen Flow Rate: 0 Physical Exam VITALS: Reviewed and as above. GENERAL: Alert, no apparent distress, mildly aggiated with staff HEENT: Normocephalic, atraumatic, PERRL, EOMI, dry mucosa, no erythema RESPIRATORY: Lungs clear, normal breath sounds, no respiratory distress. CHEST: No accessory muscle use, no retractions CV: Regular rate, rhythm, no edema, no murmur, No: JVD GI: Soft, non-tender, bowels sounds present, no rebound, guarding, or rigidity BACK: No CVA tenderness, or swelling MUSCULOSKELETAL No deformities, no edema SKIN: Warm and dry, multiple small areas that resemble bites, small wound to the posterior elbow no concern for infection at this time. NEURO: Oriented x4, No motor or sensory deficit PSYCH: Normal mood and affect, no agitation Progress Results/Orders Results/Orders Vital Signs 10/08/24 09:07 Temp 97.6 Pulse 81 Resp 16 B/P (MAP) 105/61 Pulse Ox 98 O2 Flow Rate 0 Medical Decision Making Findings Patient presented to the emergency department for evaluation for a medical c learance. Has been examined and interviewed. It is my opinion that he is medically appropriate to attend the crisis Center at this time. Patient denies any current or recent drug or alcohol use. Differential Dx:Considerations: Include: Intoxication-Alcohol, Intoxication- Other drug, Personality disorder, Substance abuse disorder, Acute delirium, Closed head injury, Cervical spine injury, Skull fracture, Fracture(s), Abrasion, Contusion, Foreign body, Hematoma, Laceration, Alcohol withdrawl syndrom, Encephalopathy, Hepatitis, Medically stable, Other Departure Disposition: 01 HOME / SELF CARE / HOMELESS Impression: Primary Impression: General medical exam Condition: Stable Discharge Instructions: Medical Screening Exam, Abrasion, [id number] Additional Instructions: Patient presented to the emergency department for evaluation for a medical clearance. Has been examined and interviewed. It is my opinion that he is medically appropriate to attend the crisis Center at this time. Patient denies any current or recent drug or alcohol use. Patient unwilling to answer additional questions. Referrals: NO PRIMARY CARE PROVIDER (PCP) Education Educated: Patient Educated regarding: treatment, need for follow up Signature Scribe Signature: A Attestation: Scribed for Emma Rollins by SHAQ Khan . 10/08/24 09:29 EMMA ROLLINS Oct 08, 2024 09:18
[2024-10-08 09:32] VITALS: TEMP 97.6
== END 2024-10-08 09:41 | disposition home or self-care (01) ==
LOC: ER 08:59
DX: Z00.8 Encounter for other general examination (principal); E78.00 Pure hypercholesterolemia, unspecified; I25.10 Atherosclerotic heart disease of native coronary artery without angina pectoris; F41.9 Anxiety disorder, unspecified; F32.A Depression, unspecified; Z88.0 Allergy status to penicillin
CPT/HCPCS: 99284

== ENCOUNTER 2024-10-24 19:39 | Emergency (ER) | payer MEDICARE, MEDICAID ==
[~2024-10-24] VITALS: Ht 175.3 cm; Wt 68.2 kg
[2024-10-24 19:46] VITALS: BP 102/56; PULSE 91; RESP 16; TEMP 98; O2SAT 95
== END 2024-10-24 21:50 | disposition left against medical advice (07) ==
LOC: ER 19:39
DX: L02.415 Cutaneous abscess of right lower limb (principal); L02.414 Cutaneous abscess of left upper limb; Z53.21 Procedure and treatment not carried out due to patient leaving prior to being seen by health care provider

== ENCOUNTER 2024-12-10 17:34 | Emergency (ER) | payer MEDICARE, MEDICAID ==
[~2024-12-10] VITALS: Ht 190.5 cm; Wt 77.3 kg
[2024-12-10 17:58] VITALS: BP 125/69; PULSE 71; RESP 16; TEMP 98.6; O2SAT 96
== END 2024-12-10 19:23 | disposition left against medical advice (07) ==
LOC: ER 17:36
DX: M25.552 Pain in left hip (principal); Z88.0 Allergy status to penicillin
CPT/HCPCS: 99281

== ENCOUNTER 2025-01-21 19:49 | Emergency (ER) | payer MEDICARE, MEDICAID ==
[~2025-01-21] VITALS: Ht 175.3 cm; Wt 70.0 kg
[~2025-01-21 19:49] MED LIST changes: -DOXY-224 PO; +LACT1CAP74 PO; +LEVO750T68 PO; +SULF-16 PO
[2025-01-21 19:59] VITALS: BP 95/62; PULSE 99; RESP 18; O2SAT 99
--- NOTE | 2025-01-21 20:00 | Physician Documentation ---
History of Present Illness General Stated Complaint: HIP PAIN Time Seen by MD: 19:59 Primary Medical Doctor: Hubert History of Present Illness Initial Comments Reports acute on chronic hip pain. Recently admitted to [facility] and attended to by orthopedics. Had an incision and drainage of the right hip and received inpatient antibiotics for several days. He has known avascular necrosis of the left hip which he has failed to follow up with the orthopedist has recommended. Presents tonight and wheelchair stating he can not walk. Patient is clearly able to walk when he uses. States he is on sheltered because he does not like the staff at the [facility]. He is denying any other resource request. Medication Reconciliation Allergies: Coded Allergies: Penicillins (Unverified Allergy, Unknown, 10/24/24) Scheduled Apixaban (Eliquis), 1 TAB PO Q12H, (Reported) Buspirone HCl (Buspirone HCl), 1 TAB PO BID, (Reported) Lactobacillus Rhamnosus GG (Culturelle), 1 CAP PO DAILY Lamotrigine (LaMICtal tablet), 1 TAB PO DAILY, (Reported) Lamotrigine (Lamotrigine), 1 TAB PO DAILY, (Reported) Levofloxacin (Levofloxacin), 750 MG PO DAILY Meloxicam (Meloxicam), 1 TAB PO DAILY Naltrexone Hcl (Naltrexone Hcl), 1 TAB PO DAILY, (Reported) Sertraline HCl (Sertraline HCl), 1.5 TAB PO DAILY, (Reported) Sulfamethoxazole/Trimethoprim (Septra Ds Tab), 1 TAB PO BID Trazodone HCl (Trazodone HCl), 2 TAB PO HS, (Reported) Scheduled PRN Hydrocodone Bit/Acetaminophen 5/325 MG ([place] 5/325 MG), 1 TAB PO Q8H PRN for severe pain (7-10) Past Medical History Past Medical History: *KEEPER HEAD*, *ENT*, High Cholesterol, Pulmonary Embolism, *MUSCULOSKELETAL*, Deep Vein Thrombosis, *INFECTIOUS DZ*, Anxiety, Depression Past Surgical History: orthopedic surgeries Lives with: Alone Review of Systems All Other Systems at this time: Reviewed and Negative Constitutional: Denies: fever, chills, diaphoresis, weakness Musc: Reports: joint pain Physical Exam Physical Exam Vital Signs: RN Vital Signs have been reviewed: Yes General Appearance: alert, WD/WN, mild distress Head: normal inspection Face: normal inspection Pupils/EOM/Fundus: PERRLA Respiratory: no respiratory distress Chest: no accessory muscle use Gastrointestinal: non-tender Back: normal inspection Extremities: other (Pain and tenderness left hip no leg length discrepancy noted) Neurologic: oriented x4 Motor / Sensory: no motor deficit, no sensory deficit Skin: normal color Progress Results/Orders Results/Orders Completed Orders - SEAN CEE Acetaminophen 325mg Tablet (Tylenol Tabl (01/21/25 20:20) Vital Signs 01/21/25 01/21/25 19:59 20:53 Temp 97.9 97.9 Pulse 99 Resp 18 B/P (MAP) 95/62 Pulse Ox 99 O2 Flow Rate 0 Medical Decision Making Additional information obtaine: old records Findings [age] year male with a acute on chronic left hip pain secondary vascular necrosis. Resources addressed. Pain management provided. Safely discharge. Differential Diagnosis 54-year-old male with a acute on chronic left hip pain secondary to a known bernabe scular necrosis. Imaging in prior admission and discharge electronic medical records reviewed Patient provided pain management in the emergency department. Shared decision-making to attend in the [facility] for [facility] tonight. He is requesting taxi to get there. Taxi has been provided for patient. He understands the importance of following up with the orthopedist for definitive management of his left hip avascular necrosis. Discharged from emergency department stable condition all resources addressed. No clinical suspicion for septic joint. Departure Disposition: HOME / SELF CARE / HOMELESS Impression: Primary Impression: Hip pain Qualified Codes: M25.552 - Pain in left hip Additional Impression: Avascular necrosis of bone of left hip Condition: Stable Discharge Instructions: Arthritis, Nonspecific Additional Instructions: Tonight in the emergency department you received Tylenol for pain. Taxi to the [facility] for housing. Follow up with the Orthopedic office of Dr. Bradshaw as discussed when you were discharged from the hospital in early December. Referrals: NO PRIMARY CARE PROVIDER (PCP) JUAN DOUGLAS Jr., MD 1 week 54-year-old male with known left hip avascular necrosis seeking follow up from discharged from the hospital on 12/31. Please evaluate. Thank you [facility] ER Prescriptions Meloxicam (Meloxicam) 15 Mg Tablet 1 TAB PO DAILY for 30 Days, #30 TAB 0 Refills Prov: SEAN CEE 01/21/25 Education Educated: Patient Educated regarding: diagnosis, treatment, prognosis Signature Scribe Signature: . Attestation: . SEAN CEE PAC Jan 21, 2025 20:00
[2025-01-21] MEDS ORDERED: MELO-102 PO (20:18)
[2025-01-21 20:53] VITALS: TEMP 97.9
== END 2025-01-21 20:54 | disposition home or self-care (01) ==
LOC: ER 19:50
DX: M87.88 Other osteonecrosis, other site (principal); M25.552 Pain in left hip; E78.00 Pure hypercholesterolemia, unspecified; G89.29 Other chronic pain; F41.9 Anxiety disorder, unspecified; F32.A Depression, unspecified; Z86.711 Personal history of pulmonary embolism; Z86.718 Personal history of other venous thrombosis and embolism; Z88.0 Allergy status to penicillin; Z79.899 Other long term (current) drug therapy; Z98.890 Other specified postprocedural states
CPT/HCPCS: 99283